=== PATIENT | female | born 1980 | race Two or more races ===

== ENCOUNTER 2016-05-25 21:33 | Emergency (ER) | payer SELFPAY ==
[~2016-05-25] VITALS: Ht 165.1 cm; Wt 62.0 kg
[~2016-05-25 21:33] MED LIST: CIPR750T10 PO; FLAG250T PO; TRAM50 PO
[2016-05-25 21:36] VITALS: BP 174/104; PULSE 99; RESP 15; TEMP 98; O2SAT 97
[2016-05-25] MEDS ORDERED: SODIUM CHLOR 0.9% 1000 ML INJ 1,000 ML IV SCH (22:50)
--- NOTE | 2016-05-25 22:50 | PD ---
HPI Chief Complaint: GI Complaint Time Seen by Provider: 22:33 Travel History International Travel<30 days: No Contact w/Intl Traveler<30days: No Traveled to known affect area: No History of Present Illness HPI 36yo F with PMH of colitis in 2014 presents to the ED with c/o epigastric abdominal pain today. States she has chronic abdominal pain for years but this is new. +Nausea. +Diarrhea for 2 days. Pain is worst after eating. Denies any fever, chest pain, sob, urinary complaints, vaginal bleeding or discharge. Pt does drink alcohol 4 times a week. No abdominal surgeries. PFSH Past Medical History High Cholesterol: Yes Past Surgical History Gynecologic Surgery: Yes (cervical cone) Social History Alcohol Use: Yes Tobacco Use: Yes Substance Use: No Allergies-Medications (Allergen,Severity, Reaction): Coded Allergies: No Known Allergies (Unverified , 05/25/16) Reported Meds & Prescriptions Reported Meds & Active Scripts Active Review of Systems Except as stated in HPI: all other systems reviewed are Neg Physical Exam Narrative GENERAL: 36yo F in moderate distress. SKIN: Focused skin assessment warm/dry. HEAD: Atraumatic. Normocephalic. EYES: Pupils equal and round. No scleral icterus. No injection or drainage. ENT: No nasal bleeding or discharge. Mucous membranes pink and moist. NECK: Trachea midline. No JVD. CARDIOVASCULAR: Regular rate and rhythm. No murmur appreciated. RESPIRATORY: No accessory muscle use. Clear to auscultation. Breath sounds equal bilaterally. GASTROINTESTINAL: Abdomen soft, +TTP epigastric region. No rebound tenderness or guarding. MUSCULOSKELETAL: No obvious deformities. No clubbing. No cyanosis. No edema. NEUROLOGICAL: Awake and alert. No obvious cranial nerve deficits. Motor grossly within normal limits. Normal speech. Data Data Last Documented VS Vital Signs Date Time Temp Pulse Resp B/P Pulse Ox O2 Delivery O2 Flow Rate FiO2 05/25/16 23:28 90 18 98 Room Air 05/25/16 21:36 98.0 174/104 Orders Complete Blood Count With Diff (05/25/16 22:50) Comprehensive Metabolic Panel (05/25/16 22:50) Lipase (05/25/16 22:50) Prothrombin Time / Inr (Pt) (05/25/16 22:50) Act Partial Throm Time (Ptt) (05/25/16 22:50) Urinalysis - C+S If Indicated (05/25/16 22:50) Iv Access Insert/Monitor (05/25/16 22:50) Ecg Monitoring (05/25/16 22:50) Oximetry (05/25/16 22:50) Morphine Inj (Morphine Inj) (05/25/16 23:00) Ondansetron Inj (Zofran Inj) (05/25/16 23:00) Sodium Chlor 0.9% 1000 Ml Inj (Ns 1000 M (05/25/16 22:50) Sodium Chloride 0.9% Flush (Ns Flush) (05/25/16 23:00) Electrocardiogram (05/25/16 22:50) Ed Urine Pregnancytest Poc (05/25/16 22:50) Urine Culture (05/25/16 23:15) Ceftriaxone Inj (Rocephin Inj) (05/26/16 00:15) Potassium Chloride (Kcl) (05/26/16 01:15) Morphine Inj (Morphine Inj) (05/26/16 01:30) Iohexol 350 Inj (Omnipaque 350 Inj) (05/26/16 01:58) Ct Abd/Pel W Iv Contrast(Rout) (05/26/16 22:50) Labs Laboratory Tests Test 05/25/16 23:15 White Blood Count 7.6 TH/MM3 Red Blood Count 4.26 MIL/MM3 Hemoglobin 13.9 GM/DL Hematocrit 40.0 % Mean Corpuscular Volume 93.9 FL Mean Corpuscular Hemoglobin 32.8 PG Mean Corpuscular Hemoglobin 34.9 % Concent Red Cell Distribution Width 12.7 % Platelet Count 254 TH/MM3 Mean Platelet Volume 8.6 FL Neutrophils (%) (Auto) 52.6 % Lymphocytes (%) (Auto) 33.1 % Monocytes (%) (Auto) 10.5 % Eosinophils (%) (Auto) 3.0 % Basophils (%) (Auto) 0.8 % Neutrophils # (Auto) 4.0 TH/MM3 Lymphocytes # (Auto) 2.5 TH/MM3 Monocytes # (Auto) 0.8 TH/MM3 Eosinophils # (Auto) 0.2 TH/MM3 Basophils # (Auto) 0.1 TH/MM3 CBC Comment DIFF FINAL Differential Comment Prothrombin Time 11.0 SEC Prothromb Time International 1.0 RATIO Ratio Activated Partial 29.9 SEC Thromboplast Time Urine Color YELLOW Urine Turbidity HAZY Urine pH 5.5 Urine Specific [place] 1.016 Urine Protein TRACE mg/dL Urine Glucose (UA) NEG mg/dL Urine Ketones NEG mg/dL Urine Occult Blood NEG Urine Nitrite POS Urine Bilirubin NEG Urine Urobilinogen LESS THAN 2.0 MG/DL Urine Leukocyte Esterase LARGE Urine RBC 6 /hpf Urine WBC 162 /hpf Urine Squamous Epithelial 10 /hpf Cells Urine Mucus FEW /lpf Microscopic Urinalysis Comment CULTURE INDICATED Sodium Level 136 MEQ/L Potassium Level 3.3 MEQ/L Chloride Level 100 MEQ/L Carbon Dioxide Level 27.6 MEQ/L Anion Gap 8 MEQ/L Blood Urea Nitrogen 9 MG/DL Creatinine 0.81 MG/DL Estimat Glomerular Filtration 79 ML/MIN Rate Random Glucose 97 MG/DL Calcium Level 8.9 MG/DL Total Bilirubin 0.4 MG/DL Aspartate Amino Transf 42 U/L (AST/SGOT) Alanine Aminotransferase 45 U/L (ALT/SGPT) Alkaline Phosphatase 137 U/L Total Protein 8.1 GM/DL Albumin 3.9 GM/DL Lipase 201 U/L [facility] Medical Decision Making Medical Screen Exam Complete: Yes Emergency Medical Condition: Yes Differential Diagnosis Gastritis vs. pancreatitis vs. colitis vs. atypical ACS Narrative Course 36yo F with epigastric abdominal pain. Labs reviewed, no leukocytosis. K: 3.3 , replaced orally. Lipase normal. UA showed positive nitrite, given ceftriaxone 1gm IV. Pt given morphine and zofran and pain has improved. Pt tolerating PO. CTa/p showed no acute abnormality. Pt has right ovarian cyst. Return precautions given. Diagnosis Primary Impression: Abdominal pain Qualified Code: R10.13 - Epigastric pain Patient Instructions: General Instructions Departure Forms: Tests/Procedures Additional Instructions: Please follow up with your PMD in 3-7 days. Return to the ED if symptoms worsen. Med/Other Pt SpecificInfo: Prescription(s) given Scripts Acetaminophen (Acetaminophen Extra Strength)500 Mg Qdi334 Mg PO Q6H PRN (PAIN SCALE 1 TO 4) #20 TAB Ref 0 Prov:BonillaSusan DO 05/26/16 Omeprazole 40 Mg Cap40 Mg PO DAILY #7 CAP Ref 0 Prov:Susan Bonilla DO 05/26/16 Disposition: 01 DISCHARGE HOME Condition: Stable BonillaSusan DO May 25, 2016 22:50
[2016-05-25] MEDS ORDERED: ONDANSETRON HCL 4 MG/2 ML VIAL IVP ONE (23:00)
[2016-05-25] MEDS ORDERED: SODIUM CHLORIDE 0.9% FLUSH 10 ML FLUSH IV FLUSH PRN (23:00)
[2016-05-25] MEDS ORDERED: MORPHINE SULFATE 4 MG/ML INJ IV PUSH ONE (23:00)
[2016-05-25 23:28] VITALS: PULSE 90; RESP 18; O2SAT 98
[2016-05-25 23:31] LABS: BASOPHIL # 0.1 TH/MM3 (0-0.2); BASOPHIL % 0.8 % (0.0-2.0); EOSINOPHIL # 0.2 TH/MM3 (0-0.4); HEMO FLAGS DIFF FINAL; LYMPH % 33.1 % (9.0-44.0); LYMPHOCYTE # 2.5 TH/MM3 (1.0-4.8); MEAN CELL VOLUME 93.9 FL (80.0-100.0); MEAN CORPUSCULAR HEMOGLOBIN 32.8 PG (27.0-34.0); MEAN CORPUSCULAR HGB CONC 34.9 % (32.0-36.0); MONO % 10.5 % (0.0-8.0); NEUT % 52.6 % (16.0-70.0); PLATELET COUNT 254 TH/MM3 (150-450); RED BLOOD COUNT 4.26 MIL/MM3 (4.00-5.30); RED CELL DISTRIBUTION WIDTH 12.7 % (11.6-17.2); WHITE BLOOD COUNT 7.6 TH/MM3 (4.0-11.0)
[2016-05-25 23:41] LABS: APTT (PATIENT) 29.9 SEC (24.3-30.1)
[2016-05-25 23:47] LABS: BLOOD, URINE NEG (NEG); COMMENT (UR) CULTURE INDICATED; CULTURE IF INDICATED CULTURE INDICATED; GLUCOSE,URINE NEG (NEG); KETONE, URINE NEG (NEG); MUCUS URINE FEW /lpf (OCC); NITRITE,URINE POS (NEG); PH, URINE 5.5 (5.0-8.5); SQUAMOUS EPITHELIAL CELL URINE 10 /hpf (0-5); URINE COLOR YELLOW (YELLW/STRAW)
[2016-05-25 23:52] LABS: ANION GAP 8 MEQ/L (5-15); AST (GOT) 42 U/L (15-37); BICARBONATE 27.6 MEQ/L (21.0-32.0); BLOOD UREA NITROGEN 9 MG/DL (7-18); CHLORIDE 100 MEQ/L (98-107); GLOMERULAR FILTRATION RATE 79 ML/MIN (>89); POTASSIUM 3.3 MEQ/L (3.5-5.1); SODIUM (NA) 136 MEQ/L (136-145)
[2016-05-25 23:55] LABS: ALKALINE PHOSPHATASE 137 U/L (45-117); ALT (GPT) 45 U/L (10-53); TOTAL BILIRUBIN ADULT 0.4 MG/DL (0.2-1.0)
[2016-05-26] MEDS ORDERED: cefTRIAXone INJ 1,000 MG in SODIUM CHLORIDE 0.9% INJ 100 ML IV ONE (00:15)
[2016-05-26] MEDS ORDERED: POTASSIUM CHLORIDE 20 MEQ CONTROLLED RELEASE TAB PO ONE (01:15)
[2016-05-26] MEDS ORDERED: MORPHINE SULFATE 8 MG/ML INJ IV PUSH ONE (01:30)
[2016-05-26] MEDS ORDERED: IOHEXOL 350 MG/ML 10 ML VIAL (for RAD DIAG) IV ONE (01:58)
--- NOTE | 2016-05-26 02:09 | RADRPT ---
EXAM DATE/TIME: 05/26/2016 01:42 [facility] COMPARISON: CT ABDOMEN & PELVIS W CONTRAST, December 03, 2014, 22:28. INDICATIONS : Intermittent, sharp abdominal pain. IV CONTRAST: 100 cc Omnipaque 350 (iohexol) IV ORAL CONTRAST: No oral contrast ingested. RADIATION DOSE: 6.64 CTDIvol (mGy) MEDICAL HISTORY : Ascites SURGICAL HISTORY : None. ENCOUNTER: Initial ACUITY: >1 yr PAIN SCALE: 10/10 LOCATION: abdomen TECHNIQUE: Volumetric scanning of the abdomen and pelvis was performed. Using automated exposure control and ad justment of the mA and/or kV according to patient size, radiation dose was kept as low as reasonably achievable to obtain optimal diagnostic quality images. FINDINGS: LOWER LUNGS: The visualized lower lungs are clear. LIVER: Homogeneous density without lesion. The liver measures 19.7 cm in length. There is no dilation of th e biliary tree. No calcified gallstones. SPLEEN: Normal size without lesion. PANCREAS: Within normal limits. KIDNEYS: Normal in size and shape. There is no mass, stone or hydronephrosis. ADRENAL GLANDS: Within normal limits. VASCULAR: There is no aortic aneurysm. There is mild atherosclerotic disease. BOWEL/MESENTERY: The stomach, small bowel, and colon demonstrate no acute abnormality. There is no free intraperitone al air or fluid. ABDOMINAL WALL: Within normal limits. RETROPERITONEUM: There is no lymphadenopathy. BLADDER: No wall thickening or mass. REPRODUCTIVE: Within normal limits. There is a 17 mm simple-appearing cystic lesion associated with the right ovary . INGUINAL: There is no lymphadenopathy or hernia. MUSCULOSKELETAL: Within normal limits for patient age. CONCLUSION: 1. No abnormality is identified to explain the clinical symptoms. 2. Nonacute findings include mild atherosclerotic disease, mild hepatomegaly, and 17 mm right ovarian cyst. René Hobson MD on May 26, 2016 at 2:04 Board Certified Radiologist. This report was verified electronically.
[2016-05-26] MEDS ORDERED: ACET500T36 PO (03:28)
[2016-05-26] MEDS ORDERED: OMEP40CA2 PO (03:28)
--- NOTE | 2016-05-27 21:20 | EKG ---
Date Performed: 05/25/2016 Time Performed: 23:45:28 PTAGE: 36 years EKG: Sinus rhythm NORMAL ECG NO PREVIOUS TRACING DOCTOR: Jack Alcala Interpretating Date/Time 05/27/2016 21:18:39
== END 2016-05-26 04:33 | disposition home or self-care (01) ==
LOC: NEPE 21:33
DX: R10.13 Epigastric pain (principal); N83.201 Unspecified ovarian cyst, right side; N39.0 Urinary tract infection, site not specified; B96.20 Unspecified Escherichia coli [E. coli] as the cause of diseases classified elsewhere
CPT/HCPCS: 74177; 80053; 81001; 83690; 84703; 85025; 85610; 85730; 87077; 87086; 87186; 93005; 96361; 96365; 96375; 96376; 99284; J0696; J2270; J2405; J7030; Q9967

== ENCOUNTER 2017-02-03 23:44 | Emergency (ER) | payer OTHER ==
[~2017-02-03] VITALS: Ht 170.2 cm; Wt 65.0 kg
[~2017-02-03 23:44] MED LIST changes: +ACET500T36 PO; -CIPR750T10 PO; -FLAG250T PO; +OMEP40CA2 PO; -TRAM50 PO
[2017-02-03 23:59] VITALS: BP 181/113; PULSE 133; RESP 18; TEMP 98.4; O2SAT 96
[2017-02-04] MEDS ORDERED: HALOPERIDOL LACTATE 5 MG/ML AMP IM ONE (00:30)
[2017-02-04] MEDS ORDERED: LORazepam 2 MG/ML VIAL IM ONE (00:30)
--- NOTE | 2017-02-04 01:17 | PD ---
HPI Chief Complaint: Alcohol/Drug Intoxication Time Seen by Provider: 00:09 Travel History International Travel<30 days: No Contact w/Intl Traveler<30days: No Traveled to known affect area: No History of Present Illness HPI 36-year-old white female presents to emergency department on her act by PD. Patient was found intoxicated at a bar. The patient was brought here to ensure patient's safety. The patient is acutely psychotic. She is hyperventilating. She is very hard to understand and follow. She rambles on about her 50-year-old boyfriend who has a pillow in a blanket in his car and feels that he is cheating on her. Patient denies any suicidal or homicidal ideation. PFSH Past Medical History High Cholesterol: Yes Gastrointestinal Disorders: Yes (ASCITES) Tetanus Vaccination: < 5 Years ?: Unknown Past Surgical History Gynecologic Surgery: Yes (cervical cone) Social History Alcohol Use: Yes Tobacco Use: Yes Substance Use: No Allergies-Medications (Allergen,Severity, Reaction): Coded Allergies: No Known Allergies (Unverified , 05/25/16) Reported Meds & Prescriptions Reported Meds & Active Scripts Active Acetaminophen Extra Strength (Acetaminophen) 500 Mg Tab 500 Mg PO Q6H PRN Omeprazole 40 Mg Cap 40 Mg PO DAILY Review of Systems General / Constitutional: No: Fever Eyes: No: Visual changes HENT: No: Headaches Cardiovascular: No: Chest Pain or Discomfort Respiratory: No: Shortness of Breath Gastrointestinal: No: Abdominal Pain Genitourinary: No: Dysuria Musculoskeletal: No: Pain Skin: No Rash Neurologic: No: Weakness Psychiatric: No: Depression Endocrine: No: Polydipsia Hematologic/Lymphatic: No: Easy Bruising Physical Exam Narrative GENERAL: Well-nourished, well-developed patient. Patient is acutely psychotic. She is rambling and not making sense. She is walking around the room standing with her face into the corner. SKIN: Warm and dry. Patient has multiple abrasions and soft tissue bruises in various stages of healing to the upper or lower extremities. HEAD: Normocephalic and atraumatic. EYES: No scleral icterus. No injection or drainage. ENT: No nasal drainage noted. Mucous membranes pink. Airway patent. NECK: Supple, trachea midline. Moves head freely without obvious discomfort. CARDIOVASCULAR: Regular rate and rhythm without murmurs, gallops, or rubs. RESPIRATORY: Breath sounds equal bilaterally. No accessory muscle use. GASTROINTESTINAL: Abdomen soft, non-tender, nondistended. EXTREMITIES: No cyanosis or edema. BACK: Nontender without obvious deformity. No CVA tenderness. NEURO: Patient is alert and oriented. no sensorimotor deficits. Nonfocal. Slurred speech. PSYCH: Patient is acutely psychotic. Data Data Last Documented VS Vital Signs Date Time Temp Pulse Resp B/P (MAP) Pulse Ox O2 Delivery O2 Flow Rate FiO2 02/04/17 00:13 18 98 Room Air 02/03/17 23:59 98.4 133 181/113 (135) Orders Orders Drug Screen, Random Urine (02/04/17 00:18) Lorazepam Inj (Ativan Inj) (02/04/17 00:30) Haloperidol Inj (Haldol Inj) (02/04/17 00:30) Labs Laboratory Tests Test 02/04/17 00:29 Urine Opiates Screen NEG Urine Barbiturates Screen NEG Urine Amphetamines Screen NEG Urine Benzodiazepines Screen NEG Urine Cocaine Screen NEG Urine Cannabinoids Screen NEG MDM Medical Decision Making Medical Screen Exam Complete: Yes Emergency Medical Condition: Yes Medical Record Reviewed: Yes Interpretation(s) Laboratory Tests Test 02/04/17 00:29 Urine Opiates Screen NEG Urine Barbiturates Screen NEG Urine Amphetamines Screen NEG Urine Benzodiazepines Screen NEG Urine Cocaine Screen NEG Urine Cannabinoids Screen NEG Differential Diagnosis Differential diagnoses: Alcohol intoxication, substance abuse, electrolyte abnormality, malingering Narrative Course Patient's given Haldol 5 mg and Ativan 2 mg IM. Patient urine is negative for drugs. The patient is now relaxed and sleeping. The patient will sleep here in the ER and then will be released in the morning. 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 Increase fluids. Avoid alcohol. Avoid illegal substances. Follow-up with [facility] for detox. Do not operate a car or any heavy machinery under the influence of alcohol or drugs. Follow-up with a medical doctor this week. Return to the ER for emergencies Med/Other Pt SpecificInfo: No Meds Exist/No RX given Condition: Stable Marty Canales Feb 04, 2017 01:17
[2017-02-04 02:41] VITALS: BP 117/78; PULSE 100; RESP 18; TEMP 98.1; O2SAT 96
[2017-02-04 06:53] VITALS: BP 113/72; PULSE 100; RESP 20; O2SAT 96
== END 2017-02-04 06:56 | disposition home or self-care (01) ==
LOC: NEPD 23:44
DX: F19.959 Other psychoactive substance use, unspecified with psychoactive substance-induced psychotic disorder, unspecified (principal); R06.4 Hyperventilation; E78.00 Pure hypercholesterolemia, unspecified; R18.8 Other ascites; Z79.899 Other long term (current) drug therapy
CPT/HCPCS: 80307; 96372; 99284; J1630; J2060